=== PATIENT | male | born 1950 | race Caucasian/White ===

== ENCOUNTER 2025-04-20 08:55 | Emergency (ER) | payer OTHER ==
[2025-04-20 09:27] VITALS: BP 158/91; PULSE 79
[2025-04-20] MEDS ORDERED: Sodium Chloride 0.9% 10 ML Syringe FLUSH PRN (10:06)
[2025-04-20 10:17] LABS: BASOPHILS PERCENT AUTO 0.2 % (0.1-1.3); EOSINOPHILS PERCENT AUTO 0.1 % (0.0-5.4); IMMATURE GRAN ABSOLUTE AUTO 0.03 K/uL (0.00-0.23); IMMATURE GRAN PERCENT AUTO 0.3 % (0.0-0.7); LYMPHOCYTES ABSOLUTE AUTO 0.57 K/uL (0.8-3.3); LYMPHOCYTES PERCENT AUTO 5.1 % (11.4-47.7); MONOCYTES ABSOLUTE AUTO 0.73 K/uL (0.20-0.90); MONOCYTES PERCENT AUTO 6.5 % (3.3-12.6); NEUTROPHILS ABSOLUTE AUTO 9.88 K/uL (1.0-7.6); NEUTROPHILS PERCENT AUTO 87.8 % (40.0-78.1); PLATELET COUNT,PLT 399 K/uL (130-375); RED BLOOD CELL COUNT 4.24 M/uL (4.14-5.76); WHITE BLOOD CELL COUNT,WBC 11.2 K/uL (3.2-11.0)
[2025-04-20 10:20] LABS: BASOPHILS ABSOLUTE AUTO 0.02 K/uL (0.00-0.10); EOSINOPHILS ABSOLUTE AUTO 0.01 K/uL (0.00-0.40)
[2025-04-20 10:38] LABS: A/G RATIO 0.8 (1.2-2.2); ALANINE AMINOTRANSFERASE,ALT 27 U/L (12-78); ASPARTATE AMNIOTRANSFERASE,AST 62 U/L (15-37); BILIRUBIN TOTAL 1.0 mg/dL (0.2-1.0); BLOOD UREA NITROGEN,BUN 15 mg/dL (7-18); CARBON DIOXIDE,CO2 27 mmol/L (21-32); CHLORIDE,CL 96 mmol/L (100-108); CREATININE 1.0 mg/dL (0.8-1.3); EST CRCL DRUG DOSING (CG) 60.59 mL/min; ESTIMATED GFR 79 mL/min (>60); GLUCOSE RANDOM 99 mg/dL (74-106); POTASSIUM,K 4.1 mmol/L (3.6-5.2); PROTEIN TOTAL,TP 6.4 g/dL (6.4-8.2); SODIUM,NA 133 mmol/L (140-148)
[2025-04-20] MEDS: Iopamidol 612 MG/ML 100 ML Bottle IV SCH (10:49)
[2025-04-20] MEDS: Sodium Chloride 0.9% 10 ML Syringe FLUSH ONE (10:49)
== END 2025-04-20 12:49 | disposition home or self-care (01) ==
LOC: JP.ED 08:55
DX: C22.0 Liver cell carcinoma (principal); Z79.899 Other long term (current) drug therapy; Z87.891 Personal history of nicotine dependence
CPT/HCPCS: 36415; 74177; 80053; 83605; 83690; 85025; 99284; J7030; Q9967

== ENCOUNTER 2025-05-20 08:57 | Day surgery (SDC) | payer MEDICARE, OTHER ==
[2025-05-20] MEDS: Lactated Ringers 1,000 ML IV SCH (10:39)
[2025-05-20] MEDS ORDERED: fentaNYL 100 MCG/2 ML SDV ONE (11:00)
[2025-05-20] MEDS ORDERED: Midazolam 1 MG/ML 2 ML SDV ONE (11:00)
[2025-05-20] MEDS ORDERED: Propofol 200 MG/20 ML SDV ONE (11:00)
[2025-05-20] MEDS: Lidocaine 1% with EPINEPHrine 1:100,000 50 ML MDV ONE (11:30)
[2025-05-20 13:08] VITALS: BP 138/72; PULSE 67
== END 2025-05-20 13:00 | disposition home or self-care (01) ==
LOC: JP.SDS 08:57
PROVIDERS: ATTEND Surgery
DX: C18.9 Malignant neoplasm of colon, unspecified (principal); I10 Essential (primary) hypertension; F17.210 Nicotine dependence, cigarettes, uncomplicated; Z79.899 Other long term (current) drug therapy
CPT/HCPCS: 00532-QZ; 71045; 71045-26; 76000; C1788; C1894; J0665; J0690; J1642; J2250; J2704; J3010; J7120

== ENCOUNTER 2025-05-26 11:32 | Emergency (ER) | payer OTHER ==
[2025-05-26 11:47] VITALS: BP 142/83; PULSE 84
[2025-05-26] MEDS ORDERED: Sodium Chloride 0.9% 10 ML Syringe FLUSH PRN (12:08)
[2025-05-26 12:19] LABS: BASOPHILS ABSOLUTE AUTO 0.01 K/uL (0.00-0.10); BASOPHILS PERCENT AUTO 0.1 % (0.1-1.3); EOSINOPHILS ABSOLUTE AUTO 0.03 K/uL (0.00-0.40); EOSINOPHILS PERCENT AUTO 0.4 % (0.0-5.4); IMMATURE GRAN ABSOLUTE AUTO 0.03 K/uL (0.00-0.23); IMMATURE GRAN PERCENT AUTO 0.4 % (0.0-0.7); LYMPHOCYTES ABSOLUTE AUTO 0.81 K/uL (0.8-3.3); LYMPHOCYTES PERCENT AUTO 9.7 % (11.4-47.7); MONOCYTES ABSOLUTE AUTO 1.39 K/uL (0.20-0.90); MONOCYTES PERCENT AUTO 16.6 % (3.3-12.6); NEUTROPHILS ABSOLUTE AUTO 6.12 K/uL (1.0-7.6); NEUTROPHILS PERCENT AUTO 72.8 % (40.0-78.1); PLATELET COUNT,PLT 415 K/uL (130-375); RED BLOOD CELL COUNT 4.23 M/uL (4.14-5.76); WHITE BLOOD CELL COUNT,WBC 8.4 K/uL (3.2-11.0)
[2025-05-26] MEDS: Lactated Ringers 1,000 ML IV ONE (12:19)
[2025-05-26] MEDS: Ondansetron 4 MG/2 ML SDV IVPUSH ONE (12:19)
[2025-05-26 12:35] LABS: BLOOD UREA NITROGEN,BUN 20.0 mg/dL (7-18); CARBON DIOXIDE,CO2 27.0 mmol/L (21-32); CHLORIDE,CL 91.0 mmol/L (100-108); CREATININE 0.9 mg/dL (0.8-1.3); EST CRCL DRUG DOSING (CG) 66.3 mL/min; ESTIMATED GFR 89.0 mL/min (>60); GLUCOSE RANDOM 89.0 mg/dL (74-106); POTASSIUM,K 4.2 mmol/L (3.6-5.2); SODIUM,NA 128.0 mmol/L (140-148)
== END 2025-05-26 13:34 | disposition home or self-care (01) ==
LOC: JP.ED 11:32
DX: K52.9 Noninfective gastroenteritis and colitis, unspecified (principal); I10 Essential (primary) hypertension
CPT/HCPCS: 36415; 80048; 83605; 85025; 96361; 96374; 99284; J2405; J7120; 99283